=== PATIENT | male | born 1990 ===

== ENCOUNTER → 2017-11-24 21:04 | Outpatient (REF) | payer OTHER, SELFPAY ==
[2017-11-28 11:08] LABS: QuantiFERON TB NEGATIVE (Negative)
[2017-11-30 13:43] LABS: Rapid Plasma Reagin NON-REACTIVE
== END ==
LOC: LAB 21:04
PROVIDERS: Visit Provider Family Medicine Adult Medicine
DX: Z00.00 Encounter for general adult medical examination without abnormal findings (principal)
CPT/HCPCS: 86480; 86592; 87591